=== PATIENT | male | born 1955 | race Hispanic/Latino ===

== ENCOUNTER 2017-11-03 17:48 | Observation (INO) | payer OTHER, MEDICARE ==
[~2017-11-03] VITALS: Ht 172.7 cm; Wt 106.4 kg
[2017-11-03 18:30] LABS: BASOPHILS % (AUTO) 0.2 % (0.0-5.0); EOSINOPHILS % (AUTO) 0.1 % (0.0-8.0); LYMPHOCYTES % (AUTO) 3.9 % (21.0-51.0); MEAN CORPUSCULAR HEMOGLOBIN 25.6 pg (27.0-33.0); MEAN CORPUSCULAR HGB CONC 31.8 g/dL (32.0-36.0); MEAN CORPUSCULAR VOLUME 80.4 fL (79-99); MONOCYTES % (AUTO) 5.3 % (3.0-13.0); NEUTROPHILS % (AUTO) 90.5 % (40.0-77.0); PLATELET COUNT (AUTO) 399 K/uL (130-400); RED BLOOD CELL COUNT(AUTO) 5.48 MIL/uL (4.50-6.20); WHITE BLOOD COUNT (AUTO) 19.6 K/uL (4.8-10.8)
[2017-11-03] MEDS ORDERED: SODIUM CHLORIDE 0.9% 1000ML 1,000 ML IV ONE (18:48)
[2017-11-03 18:51] LABS: ALBUMIN 2.8 g/dL (3.5-5.0); BILIRUBIN,TOTAL 0.6 mg/dL (0.2-1.0); CREATININE 1.5 mg/dL (0.5-1.5); TOTAL PROTEIN, SERUM 8.3 g/dL (6.0-8.3)
[2017-11-03 18:53] LABS: POTASSIUM 2.9 mmol/L (3.5-5.1)
[2017-11-03 19:11] LABS: APPEARANCE,URINE Clear (CLEAR); BILIRUBIN,URINE Negative (NEGATIVE); COLOR,URINE Yellow (YELLOW); GLUCOSE, URINE (UA) Negative (NEGATIVE); KETONES,URINE 15 mg/dL (NEGATIVE); LEUKOCYTE ESTERASE ,URINE Negative (NEGATIVE); NITRATE,URINE Negative (NEGATIVE); OCCULT BLOOD,URINE Negative (NEGATIVE); PH,URINE 6.5 (5.0-8.0); PROTEIN,URINE POS 1+ (NEGATIVE)
[2017-11-03 19:49] LABS: BACTERIA,URINE Rare /HPF (None Seen); RBC,URINE 0-1 /HPF (0-1); TRANSITIONAL EPI CELLS,URINE Few /LPF (None Seen); WBC,URINE 0-1 /HPF (0-1)
[2017-11-03 19:50] LABS: SQUAMOUS EPITHELIAL CELL,UR Few /LPF (0-2)
[2017-11-03] MEDS ORDERED: POTASSIUM BICARB/CIT AC 25 MEQ TABLET.EFF ONE (20:16)
[2017-11-03] MEDS ORDERED: IOPAMIDOL-370 100 ML VIAL IV ONE (21:43)
[2017-11-03] MEDS ORDERED: BISACODYL 10 MG SUPP.RECT RC ONE (22:53)
[2017-11-04] MEDS ORDERED: SODIUM CHLORIDE 0.9% 1000ML 1,000 ML IV SCH (01:48)
[2017-11-04 01:57] VITALS: BP 153/91
[2017-11-04] MEDS ORDERED: LACTULOSE 20 GM/30 ML UDCUP PO PRN (02:00)
[2017-11-04] MEDS ORDERED: DEXTROSE 50%-WATER 50 ML DISP.SYRIN IV PRN (02:00)
[2017-11-04] MEDS ORDERED: GLUCAGON 1MG KIT 1 MG ML IM PRN (02:00)
[2017-11-04] MEDS ORDERED: POTASSIUM CHLORIDE 20 MEQ ERTAB PO PRN (02:00)
[2017-11-04] MEDS ORDERED: ALBUTEROL SULFATE 0.083% 2.5 MG/3 ML INH IH PRN (02:00)
[2017-11-04] MEDS ORDERED: ACETAMINOPHEN 325 MG TAB PO PRN (02:00)
[2017-11-04] MEDS ORDERED: ONDANSETRON HCL 4 MG/2 ML VIAL IVP PRN (02:00)
[2017-11-04] MEDS ORDERED: DOXA1TAB2 PO (02:59)
[2017-11-04] MEDS ORDERED: METF10004 PO (02:59)
[2017-11-04] MEDS ORDERED: CITA20SO PO (02:59)
[2017-11-04] MEDS ORDERED: LOSA100T29 PO (02:59)
[2017-11-04] MEDS ORDERED: CLOP75TA14 PO (02:59)
[2017-11-04] MEDS ORDERED: SITA100T12 PO (02:59)
[2017-11-04] MEDS ORDERED: CLON0.1T PO (02:59)
[2017-11-04] MEDS ORDERED: KETO15CR2 TP (02:59)
[2017-11-04] MEDS ORDERED: ROSU10TA35 PO (02:59)
[2017-11-04] MEDS ORDERED: BENZ-39 PO (02:59)
[2017-11-04] MEDS ORDERED: ALBU0.63 IH (02:59)
[2017-11-04] MEDS ORDERED: INSU100V12 SQ (02:59)
[2017-11-04 03:35] VITALS: BP 148/88
[2017-11-04 04:12] LABS: HEMATOCRIT 42.9 % (42-54); MEAN CORPUSCULAR HEMOGLOBIN 25.8 pg (27.0-33.0); MEAN CORPUSCULAR HGB CONC 32.6 g/dL (32.0-36.0); MEAN CORPUSCULAR VOLUME 79.3 fL (79-99); PLATELET COUNT (AUTO) 310 K/uL (130-400); RED BLOOD CELL COUNT(AUTO) 5.41 MIL/uL (4.50-6.20); RED CELL DISTRIBUTION WIDTH 16.8 % (11.0-15.5); WHITE BLOOD COUNT (AUTO) 24.5 K/uL (4.8-10.8)
[2017-11-04] MEDS: LEVOFLOXACIN 500 MG/D5W 100 ML 100 ML IV SCH (04:18)
[2017-11-04] MEDS: INSULIN HUMULIN R 100 UNIT/ML 3ML SQ SCH ×4 (06:50→20:55)
[2017-11-04] MEDS: LIDOCAINE HCL-MPF 1% 2ML VIAL IVP PRN ×3 (07:01→21:41)
[2017-11-04] MEDS: POTASSIUM CHLORIDE 20MEQ/100ML 100 ML IV PRN ×3 (07:01→21:42)
[2017-11-04] MEDS ORDERED: DOCU100C19 PO (07:50)
[2017-11-04] MEDS ORDERED: METO-409 PO (07:50)
[2017-11-04] MEDS ORDERED: TAMS0.4C32 PO (07:50)
[2017-11-04] MEDS ORDERED: TERB250T51 PO (07:50)
[2017-11-04 08:00] VITALS: BP 160/99
[2017-11-04] MEDS ORDERED: MAGNESIUM 2GM PREMIX 50ML 50 ML IV SCH (08:15)
[2017-11-04] MEDS ORDERED: FAMOTIDINE 20MG TAB 20 MG TAB PO SCH (09:00)
[2017-11-04] MEDS: FAMOTIDINE/PF 20 MG/2 ML VIAL IV SCH ×2 (09:35→21:27)
[2017-11-04 11:00] VITALS: BP 146/89
[2017-11-04] MEDS: IPRATROPIUM 0.5 MG/2.5 ML INH IH SCH ×2 (11:19→18:22)
[2017-11-04] MEDS ORDERED: IPRATROPIUM/ALBUTEROL SULFATE 3 ML SOLUTION IH SCH (12:00)
[2017-11-04 16:00] VITALS: BP 178/97
[2017-11-04 20:00] VITALS: BP 164/82
[2017-11-04] MEDS: SODIUM CHLORIDE 0.9% 1000ML 1,000 ML IV SCH (21:27)
[2017-11-04] MEDS: HYDRALAZINE HCL 20 MG/ML VIAL IV PRN (21:42)
[2017-11-05] VITALS: BP 158/78
[2017-11-05] MEDS: IPRATROPIUM 0.5 MG/2.5 ML INH IH SCH ×4 (00:05→18:44)
[2017-11-05 04:00] VITALS: BP 148/80
[2017-11-05] MEDS: LEVOFLOXACIN 500 MG/D5W 100 ML 100 ML IV SCH (04:16)
[2017-11-05] MEDS: SODIUM CHLORIDE 0.9% 1000ML 1,000 ML IV SCH (05:00)
[2017-11-05 05:04] LABS: HEMATOCRIT 39.3 % (42-54); MEAN CORPUSCULAR HGB CONC 32.9 g/dL (32.0-36.0); PLATELET COUNT (AUTO) 339 K/uL (130-400); RED BLOOD CELL COUNT(AUTO) 4.97 MIL/uL (4.50-6.20); RED CELL DISTRIBUTION WIDTH 16.5 % (11.0-15.5); WHITE BLOOD COUNT (AUTO) 13.4 K/uL (4.8-10.8)
[2017-11-05 05:19] LABS: CREATININE 0.7 mg/dL (0.5-1.5); MAGNESIUM 1.8 mg/dL (1.80-2.40); PHOSPHORUS 2.1 mg/dL (2.5-4.9)
[2017-11-05 05:25] LABS: POTASSIUM 2.8 mmol/L (3.5-5.1)
[2017-11-05] MEDS: LIDOCAINE HCL-MPF 1% 2ML VIAL IVP PRN ×3 (05:42→15:55)
[2017-11-05] MEDS: POTASSIUM CHLORIDE 20MEQ/100ML 100 ML IV PRN ×3 (05:43→15:55)
[2017-11-05 06:06] LABS: ERYTHROCYTE SEDIMENTATION RATE 57 MM/HR (0-15)
[2017-11-05 06:08] LABS: BAND NEUTROPHILS % (MANUAL) 2 % (0-2); BASOPHILS % (MANUAL) 1 % (0-2); LYMPHOCYTES % (MANUAL) 14 % (22-44); MONOCYTES % (MANUAL) 6 % (2-9); REACTIVE LYMPHOCYTES 1 % (0-0); SEGMENTED NEUTROPHILS % 76 % (40-70)
[2017-11-05 06:09] LABS: MAN.DIFF COMMENT-IMPRESSION MANUAL DIFFERENTIAL; PLATELET MORPHOLOGY COMMENT ADEQUATE
[2017-11-05] MEDS: INSULIN HUMULIN R 100 UNIT/ML 3ML SQ SCH ×4 (06:38→21:00)
[2017-11-05 07:57] VITALS: BP 158/87
[2017-11-05] MEDS ORDERED: MAGNESIUM 2GM PREMIX 50ML 50 ML IV SCH (08:15)
[2017-11-05] MEDS: POTASSIUM CHLORIDE 20 MEQ in SODIUM CHLORIDE 0.9% 1000ML 1,000 ML IV SCH (09:47)
[2017-11-05] MEDS: FAMOTIDINE/PF 20 MG/2 ML VIAL IV SCH ×2 (09:47→22:22)
[2017-11-05] MEDS: ENOXAPARIN SODIUM 30 MG/0.3 ML SQ SCH ×2 (09:50→09:58)
[2017-11-05 11:50] VITALS: BP 144/90
[2017-11-05 16:00] VITALS: BP 172/93
[2017-11-05 20:00] VITALS: BP 146/92
[2017-11-05] MEDS: HYDRALAZINE HCL 20 MG/ML VIAL IV PRN (23:51)
[2017-11-06] VITALS: BP 166/84
[2017-11-06] MEDS: IPRATROPIUM 0.5 MG/2.5 ML INH IH SCH ×5 (00:09→23:18)
[2017-11-06 04:00] VITALS: BP 144/86
[2017-11-06] MEDS: LEVOFLOXACIN 500 MG/D5W 100 ML 100 ML IV SCH (04:12)
[2017-11-06] MEDS: POTASSIUM CHLORIDE 20 MEQ in SODIUM CHLORIDE 0.9% 1000ML 1,000 ML IV SCH (05:43)
[2017-11-06 06:35] LABS: BASOPHILS % (AUTO) 0.5 % (0.0-5.0); EOSINOPHILS % (AUTO) 1.6 % (0.0-8.0); HEMATOCRIT 37.7 % (42-54); LYMPHOCYTES % (AUTO) 15.5 % (21.0-51.0); MEAN CORPUSCULAR HEMOGLOBIN 26.1 pg (27.0-33.0); MEAN CORPUSCULAR HGB CONC 32.6 g/dL (32.0-36.0); MEAN CORPUSCULAR VOLUME 80.1 fL (79-99); NEUTROPHILS % (AUTO) 74.4 % (40.0-77.0); PLATELET COUNT (AUTO) 333 K/uL (130-400); RED BLOOD CELL COUNT(AUTO) 4.71 MIL/uL (4.50-6.20); RED CELL DISTRIBUTION WIDTH 16.9 % (11.0-15.5); WHITE BLOOD COUNT (AUTO) 11.5 K/uL (4.8-10.8)
[2017-11-06 06:45] LABS: CREATININE 0.7 mg/dL (0.5-1.5)
[2017-11-06] MEDS: INSULIN HUMULIN R 100 UNIT/ML 3ML SQ SCH ×4 (07:30→21:00)
[2017-11-06 08:00] VITALS: BP 173/88
[2017-11-06] MEDS: POTASSIUM CHLORIDE 10% ELIXIR 20 MEQ/15 ML UDCUP PO PRN ×3 (10:58→17:01)
[2017-11-06] MEDS: FAMOTIDINE/PF 20 MG/2 ML VIAL IV SCH ×2 (10:58→22:13)
[2017-11-06] MEDS: HYDRALAZINE HCL 20 MG/ML VIAL IV PRN (10:59)
[2017-11-06 11:00] VITALS: BP 151/81
[2017-11-06] MEDS: ENOXAPARIN SODIUM 30 MG/0.3 ML SQ SCH (11:01)
[2017-11-06 16:00] VITALS: BP 148/96
[2017-11-06 20:00] VITALS: BP 136/86
[2017-11-07] VITALS: BP 160/86
[2017-11-07] MEDS: HYDRALAZINE HCL 20 MG/ML VIAL IV PRN (00:03)
[2017-11-07 04:00] VITALS: BP 144/86
[2017-11-07] MEDS: LEVOFLOXACIN 500 MG/D5W 100 ML 100 ML IV SCH (04:33)
[2017-11-07] MEDS: IPRATROPIUM 0.5 MG/2.5 ML INH IH SCH ×2 (06:21→11:25)
[2017-11-07] MEDS: INSULIN HUMULIN R 100 UNIT/ML 3ML SQ SCH ×4 (06:52→20:27)
[2017-11-07 08:00] VITALS: BP 148/80
[2017-11-07] MEDS ORDERED: LINAGLIPTIN 5 MG TABLET PO SCH (08:30)
[2017-11-07 08:58] LABS: CREATININE 0.7 mg/dL (0.5-1.5); POTASSIUM 3.6 mmol/L (3.5-5.1)
[2017-11-07] MEDS ORDERED: CITALOPRAM 20 MG TABLET PO SCH (09:00)
[2017-11-07] MEDS ORDERED: KETOCONAZOLE 15 GM CREAM.GM. TP SCH (09:00)
[2017-11-07] MEDS ORDERED: DOXAZOSIN MESYLATE 2 MG TABLET PO SCH (09:00)
[2017-11-07] MEDS ORDERED: CLOPIDOGREL BISULFATE 75 MG TAB PO SCH (09:00)
[2017-11-07] MEDS ORDERED: TERBINAFINE HCL 250 MG PO SCH (09:00)
[2017-11-07 11:00] VITALS: BP 143/89
[2017-11-07] MEDS: DOCUSATE SODIUM 100 MG CAP PO SCH ×2 (11:39→20:21)
[2017-11-07] MEDS: METOPROLOL TARTRATE 50 MG TAB PO SCH ×2 (11:40→20:21)
[2017-11-07] MEDS: FAMOTIDINE/PF 20 MG/2 ML VIAL IV SCH (11:40)
[2017-11-07] MEDS: TAMSULOSIN HCL 0.4 MG CAP.ER.24H PO SCH ×2 (11:40→20:21)
[2017-11-07] MEDS ORDERED: IPRATROPIUM 0.5 MG/2.5 ML INH IH PRN (15:57)
[2017-11-07 16:00] VITALS: BP 132/77
[2017-11-07] MEDS ORDERED: BENZONATATE 100 MG CAPSULE PO PRN (16:00)
[2017-11-07] MEDS ORDERED: CLONIDINE HCL 0.1 MG TABLET PO PRN (16:00)
[2017-11-07] MEDS ORDERED: METFORMIN HCL 500 MG TABLET PO SCH (17:00)
[2017-11-07] MEDS ORDERED: LEVO500T2 PO (17:30)
[2017-11-07 19:27] VITALS: BP 153/99
[2017-11-07] MEDS ORDERED: ATORVASTATIN CALCIUM 20 MG TABLET PO SCH (21:00)
[2017-11-08] MEDS ORDERED: INSULIN GLARGINE 100 UNITS/ML 10 ML VIAL SQ SCH (07:30)
[2017-11-08] MEDS ORDERED: INSULIN GLARGINE 100 UNITS/ML 10 ML VIAL SQ ONE (08:00)
[2017-11-08] MEDS ORDERED: LEVOFLOXACIN 500 MG TABLET PO SCH (09:00)
== END 2017-11-07 20:52 ==
LOC: EDH 17:48 → 3BH 11-04 00:56
PROVIDERS: ADMIT Internal Medicine; ATTEND Internal Medicine
DX: D72.829 Elevated white blood cell count, unspecified (principal); E86.0 Dehydration; E87.6 Hypokalemia; R13.10 Dysphagia, unspecified; K59.00 Constipation, unspecified; R62.7 Adult failure to thrive; E78.5 Hyperlipidemia, unspecified; I10 Essential (primary) hypertension; E11.9 Type 2 diabetes mellitus without complications; H54.8 Legal blindness, as defined in USA; E46 Unspecified protein-calorie malnutrition; Z86.73 Personal history of transient ischemic attack (TIA), and cerebral infarction without residual deficits; Z90.49 Acquired absence of other specified parts of digestive tract; Z79.84 Long term (current) use of oral hypoglycemic drugs; Z79.899 Other long term (current) drug therapy
CPT/HCPCS: 36415 ×5; 70450; 71045; 71250; 74177; 80048 ×4; 80053; 81001; 81206; 82948 ×17; 83735 ×3; 84100; 84132 ×3; 84484; 85025 ×4; 85651 ×2; 87040 ×2; 88313; 92610 ×2; 93005; 94640 ×13; 94664; 96361 ×2; 96365; 96366 ×4; 96367; 96372 ×2; 96375; 96376 ×5; 97039; 97161; 97530 ×2; 99285; G0378 ×92; G8978; G8979; G8981; G8982; G8983; J0360 ×4; J1650 ×2; J1956 ×4; J3475 ×2; J3480 ×8; J3490 ×13; J7030 ×3; Q9967

== ENCOUNTER 2017-12-18 13:57 | Inpatient (IN) | payer OTHER, MEDICARE ==
[~2017-12-18] VITALS: Ht 170.2 cm; Wt 98.1 kg
[~2017-12-18 13:57] MED LIST: ALBU0.63 IH; BENZ-39 PO; CITA20SO PO; CLON0.1T PO; CLOP75TA14 PO; DOCU100C19 PO; DOXA1TAB2 PO; INSU100V12 SQ; KETO15CR2 TP; LEVO500T2 PO; LOSA100T29 PO; METF10004 PO; METO-409 PO; ROSU10TA27 PO; SITA100T12 PO; TAMS0.4C32 PO; TERB250T51 PO
[2017-12-18] MEDS ORDERED: IPRATROPIUM/ALBUTEROL SULFATE 3 ML SOLUTION IH ONE (14:04)
[2017-12-18] MEDS ORDERED: SODIUM CHLORIDE 0.9% 1000ML 1,000 ML IV ONE (14:07)
[2017-12-18 14:22] LABS: BASOPHILS % (AUTO) 0.3 % (0.0-5.0); EOSINOPHILS % (AUTO) 0.1 % (0.0-8.0); HEMATOCRIT 42.8 % (42-54); LYMPHOCYTES % (AUTO) 7.6 % (21.0-51.0); MEAN CORPUSCULAR HGB CONC 32.1 g/dL (32.0-36.0); MONOCYTES % (AUTO) 3.1 % (3.0-13.0); NEUTROPHILS % (AUTO) 88.9 % (40.0-77.0); PLATELET COUNT (AUTO) 398 K/uL (130-400); RED BLOOD CELL COUNT(AUTO) 5.28 MIL/uL (4.50-6.20); RED CELL DISTRIBUTION WIDTH 17.8 % (11.0-15.5); WHITE BLOOD COUNT (AUTO) 23.6 K/uL (4.8-10.8)
[2017-12-18] MEDS ORDERED: LEVOFLOXACIN 750 MG/D5W 150 ML 150 ML ONE (14:29)
[2017-12-18 14:31] LABS: APPEARANCE,URINE SLIGHTLY CLOUDY (CLEAR); BILIRUBIN,URINE Small (NEGATIVE); COLOR,URINE Dark Yellow (YELLOW); GLUCOSE, URINE (UA) Negative (NEGATIVE); KETONES,URINE Negative (NEGATIVE); LEUKOCYTE ESTERASE ,URINE Trace (NEGATIVE); NITRATE,URINE Negative (NEGATIVE); OCCULT BLOOD,URINE Negative (NEGATIVE); PROTEIN,URINE Trace (NEGATIVE)
[2017-12-18 14:34] LABS: INR 1.1 (0.85-1.15); PARTIAL THROMBOPLASTIN TIME 25.3 SEC (26.3-35.5); PROTHROMBIN TIME 11.5 SEC (9.6-11.6)
[2017-12-18 14:36] LABS: ALBUMIN 2.4 g/dL (3.5-5.0); BILIRUBIN,TOTAL 0.7 mg/dL (0.2-1.0); CREATININE 2.9 mg/dL (0.5-1.5); POTASSIUM 4.2 mmol/L (3.5-5.1); TOTAL PROTEIN, SERUM 7.4 g/dL (6.0-8.3)
[2017-12-18 14:49] LABS: AMORPHOUS SEDIMENT,UR Few /LPF (None Seen); BACTERIA,URINE Rare /HPF (None Seen); RBC,URINE 0-1 /HPF (0-1); SQUAMOUS EPITHELIAL CELL,UR Few /HPF (0-2); WBC,URINE 0-1 /HPF (0-1)
[2017-12-18] MEDS ORDERED: SODIUM CHLORIDE 0.9% 1000ML 2,000 ML IV ONE (15:07)
[2017-12-18] MEDS ORDERED: CEFTRIAXONE SODIUM 1 GM ONE (15:19)
[2017-12-18 17:22] VITALS: BP 109/69
[2017-12-18] MEDS ORDERED: GLUCAGON 1MG KIT 1 MG ML IM PRN (18:00)
[2017-12-18] MEDS ORDERED: DEXTROSE 50%-WATER 50 ML DISP.SYRIN IV PRN (18:00)
[2017-12-18] MEDS ORDERED: POTASSIUM CHLORIDE 20 MEQ ERTAB PO PRN (18:00)
[2017-12-18] MEDS: INSULIN R NPO SS1 SQ SCH (18:00)
[2017-12-18] MEDS ORDERED: POTASSIUM CHLORIDE 10% ELIXIR 20 MEQ/15 ML UDCUP PO PRN (18:00)
[2017-12-18] MEDS ORDERED: ACETAMINOPHEN 650 MG SUPPOSITORY RC PRN (18:00)
[2017-12-18] MEDS ORDERED: ONDANSETRON HCL 4 MG/2 ML VIAL IVP PRN (18:00)
[2017-12-18 19:12] VITALS: BP 120/71
[2017-12-18] MEDS: IPRATROPIUM/ALBUTEROL SULFATE 3 ML SOLUTION IH SCH ×2 (19:25→23:36)
[2017-12-18] MEDS ORDERED: DEXTROSE 5%-WATER 1,000 ML IV ONE (22:23)
[2017-12-18 23:37] VITALS: BP 101/53
[2017-12-18] MEDS: DEXTROSE 5%-WATER 1,000 ML IV SCH (23:45)
[2017-12-19 03:14] VITALS: BP 105/48
[2017-12-19 04:12] LABS: ABG BASE EXCESS -0.4 mmol/L (-2.0-3.0); ABG HCO3 23.2 mmol/L (21.0-28.0); ABG OXYGEN SATURATION 96.1 % (95.0-99.0); ABG PCO2 35 mmHg (35-48)
[2017-12-19 04:17] LABS: HEMATOCRIT 36.4 % (42-54); MEAN CORPUSCULAR HEMOGLOBIN 25.7 pg (27.0-33.0); MEAN CORPUSCULAR HGB CONC 31.8 g/dL (32.0-36.0); PLATELET COUNT (AUTO) 264 K/uL (130-400); RED BLOOD CELL COUNT(AUTO) 4.49 MIL/uL (4.50-6.20); RED CELL DISTRIBUTION WIDTH 17.9 % (11.0-15.5); WHITE BLOOD COUNT (AUTO) 28.1 K/uL (4.8-10.8)
[2017-12-19 04:36] LABS: HEMOGLOBIN A1C 7.1 % (4.0-6.0)
[2017-12-19 04:40] LABS: ALBUMIN 1.7 g/dL (3.5-5.0); BILIRUBIN,TOTAL 0.4 mg/dL (0.2-1.0); CREATININE 2.2 mg/dL (0.5-1.5); POTASSIUM 3.3 mmol/L (3.5-5.1); TOTAL PROTEIN, SERUM 6.5 g/dL (6.0-8.3)
[2017-12-19] MEDS: POTASSIUM CHLORIDE 20MEQ/100ML 100 ML IV PRN (05:38)
[2017-12-19] MEDS: INSULIN R NPO SS1 SQ SCH ×5 (05:44→23:56)
[2017-12-19] MEDS: IPRATROPIUM/ALBUTEROL SULFATE 3 ML SOLUTION IH SCH ×4 (06:49→23:46)
[2017-12-19 07:00] VITALS: BP 136/79
[2017-12-19] MEDS ORDERED: MEROPENEM 500MG+NS 50ML 50 ML IV SCH (08:15)
[2017-12-19] MEDS ORDERED: MEROPENEM 500 MG VIAL IVP SCH (08:45)
[2017-12-19] MEDS ORDERED: CEFTRIAXONE SODIUM 1 GM IVP SCH (09:00)
[2017-12-19] MEDS ORDERED: PANTOPRAZOLE 40 MG/VIAL IV SCH (09:00)
[2017-12-19 11:00] VITALS: BP 114/69
[2017-12-19] MEDS: PANTOPRAZOLE 40 MG/VIAL IV SCH (13:19)
[2017-12-19] MEDS: LEVOFLOXACIN 500 MG/D5W 100 ML 100 ML IV SCH (13:19)
[2017-12-19] MEDS: DEXTROSE 5%-WATER 1,000 ML IV SCH ×2 (13:30→23:24)
[2017-12-19 16:00] VITALS: BP 139/85
[2017-12-19 19:21] VITALS: BP 133/69
[2017-12-19] MEDS: MEROPENEM 500 MG VIAL IVP SCH (23:23)
[2017-12-19] MEDS: ACETYLCYSTEINE 20% 200MG/ML 4ML VIAL IH SCH (23:46)
[2017-12-19 23:47] VITALS: BP 133/81
[2017-12-20 04:08] LABS: HEMATOCRIT 35.6 % (42-54); MEAN CORPUSCULAR HEMOGLOBIN 25.8 pg (27.0-33.0); MEAN CORPUSCULAR HGB CONC 31.7 g/dL (32.0-36.0); MEAN CORPUSCULAR VOLUME 81.2 fL (79-99); PLATELET COUNT (AUTO) 207 K/uL (130-400); RED BLOOD CELL COUNT(AUTO) 4.38 MIL/uL (4.50-6.20); RED CELL DISTRIBUTION WIDTH 18.1 % (11.0-15.5); WHITE BLOOD COUNT (AUTO) 23.2 K/uL (4.8-10.8)
[2017-12-20 04:16] VITALS: BP 124/67
[2017-12-20 04:29] LABS: ALBUMIN 1.7 g/dL (3.5-5.0); BILIRUBIN,TOTAL 0.3 mg/dL (0.2-1.0); CREATININE 1.4 mg/dL (0.5-1.5); MAGNESIUM 1.9 mg/dL (1.80-2.40); TOTAL PROTEIN, SERUM 5.8 g/dL (6.0-8.3)
[2017-12-20 04:34] LABS: POTASSIUM 2.9 mmol/L (3.5-5.1)
[2017-12-20] MEDS: POTASSIUM CHLORIDE 20MEQ/100ML 100 ML IV PRN ×2 (04:47→04:48)
[2017-12-20] MEDS: ACETYLCYSTEINE 20% 200MG/ML 4ML VIAL IH SCH ×6 (05:39→23:30)
[2017-12-20] MEDS: IPRATROPIUM/ALBUTEROL SULFATE 3 ML SOLUTION IH SCH ×4 (05:39→23:29)
[2017-12-20] MEDS: INSULIN R NPO SS1 SQ SCH ×4 (05:55→23:39)
[2017-12-20 07:00] VITALS: BP 136/70
[2017-12-20] MEDS ORDERED: VANCOMYCIN PROTOCOL PER PHARMACY IV PRN (08:00)
[2017-12-20] MEDS ORDERED: VANCOMYCIN 1GM+NS 250ML 250 ML IV SCH (08:00)
[2017-12-20] MEDS ORDERED: LABETALOL 20 MG/4 ML DISP.SYRIN IV SCH (08:15)
[2017-12-20] MEDS ORDERED: MAGNESIUM 2GM PREMIX 50ML 50 ML IV SCH (08:15)
[2017-12-20] MEDS ORDERED: COMPOUND IV REFRIGERATED 1 EACH IVSOLN MISC PRN (08:15)
[2017-12-20] MEDS: ENOXAPARIN SODIUM 30 MG/0.3 ML SQ SCH (08:35)
[2017-12-20] MEDS: PANTOPRAZOLE 40 MG/VIAL IV SCH (09:28)
[2017-12-20] MEDS: POTASSIUM CHLORIDE 20 MEQ in DEXTROSE 5%-WATER 1,000 ML IV SCH ×3 (09:28→23:39)
[2017-12-20] MEDS: LABETALOL HCL 5 MG/ML 20ML VIAL IV SCH ×3 (09:33→20:46)
[2017-12-20 11:00] VITALS: BP 130/75
[2017-12-20] MEDS: MEROPENEM 500 MG VIAL IVP SCH ×2 (12:36→23:39)
[2017-12-20] MEDS ORDERED: ONDANSETRON HCL MDV 20ML 2 MG/ML VIAL IVP PRN (12:57)
[2017-12-20] MEDS: LEVOFLOXACIN 500 MG/D5W 100 ML 100 ML IV SCH (15:17)
[2017-12-20 16:00] VITALS: BP 158/90
[2017-12-20 19:23] VITALS: BP 133/67
[2017-12-20] MEDS: VANCOMYCIN 750MG + NS 250 ML IV SCH ×2 (20:46)
[2017-12-20 23:04] VITALS: BP 133/89
[2017-12-20] MEDS ORDERED: POTASSIUM CHLORIDE 20 MEQ in DEXTROSE 5%-WATER 1,000 ML IV SCH (23:45)
[2017-12-21] MEDS: LABETALOL HCL 5 MG/ML 20ML VIAL IV SCH ×4 (01:49→20:56)
[2017-12-21 03:36] VITALS: BP 136/83
[2017-12-21 04:01] LABS: HEMATOCRIT 35.1 % (42-54); MEAN CORPUSCULAR HEMOGLOBIN 25.8 pg (27.0-33.0); MEAN CORPUSCULAR HGB CONC 31.8 g/dL (32.0-36.0); MEAN CORPUSCULAR VOLUME 81.3 fL (79-99); PLATELET COUNT (AUTO) 243 K/uL (130-400); RED BLOOD CELL COUNT(AUTO) 4.32 MIL/uL (4.50-6.20); RED CELL DISTRIBUTION WIDTH 17.9 % (11.0-15.5); WHITE BLOOD COUNT (AUTO) 20.6 K/uL (4.8-10.8)
[2017-12-21 04:12] LABS: CREATININE 1.1 mg/dL (0.5-1.5); POTASSIUM 3.3 mmol/L (3.5-5.1)
[2017-12-21 04:16] LABS: BAND NEUTROPHILS % (MANUAL) 2 % (0-2); LYMPHOCYTES % (MANUAL) 6 % (22-44); MONOCYTES % (MANUAL) 4 % (2-9); SEGMENTED NEUTROPHILS % 88 % (40-70)
[2017-12-21 04:17] LABS: MAN.DIFF COMMENT-IMPRESSION MANUAL DIFFERENTIAL
[2017-12-21] MEDS: INSULIN R NPO SS1 SQ SCH ×4 (05:45→23:49)
[2017-12-21] MEDS: IPRATROPIUM/ALBUTEROL SULFATE 3 ML SOLUTION IH SCH ×4 (05:54→23:32)
[2017-12-21] MEDS: ACETYLCYSTEINE 20% 200MG/ML 4ML VIAL IH SCH (05:55)
[2017-12-21 08:01] VITALS: BP 150/91
[2017-12-21] MEDS: PANTOPRAZOLE 40 MG/VIAL IV SCH (08:04)
[2017-12-21] MEDS: ENOXAPARIN SODIUM 30 MG/0.3 ML SQ SCH (08:05)
[2017-12-21] MEDS: VANCOMYCIN 750MG + NS 250 ML IV SCH ×4 (08:05→20:55)
[2017-12-21 11:07] VITALS: BP 156/88
[2017-12-21] MEDS: MEROPENEM 500 MG VIAL IVP SCH ×2 (11:54→23:47)
[2017-12-21] MEDS: LEVOFLOXACIN 500 MG/D5W 100 ML 100 ML IV SCH (13:04)
[2017-12-21] MEDS: POTASSIUM CHLORIDE 20 MEQ in DEXTROSE 5%-WATER 1,000 ML IV SCH (13:08)
[2017-12-21 16:35] VITALS: BP 135/67
[2017-12-21 19:41] VITALS: BP 137/84
[2017-12-21 23:47] VITALS: BP 138/91
[2017-12-22] MEDS: POTASSIUM CHLORIDE 20 MEQ in DEXTROSE 5%-WATER 1,000 ML IV SCH ×2 (00:53→12:44)
[2017-12-22] MEDS: LABETALOL HCL 5 MG/ML 20ML VIAL IV SCH ×4 (03:23→21:00)
[2017-12-22 04:12] VITALS: BP 150/86
[2017-12-22 04:46] LABS: MEAN CORPUSCULAR HEMOGLOBIN 26.5 pg (27.0-33.0); MEAN CORPUSCULAR HGB CONC 32.7 g/dL (32.0-36.0); MEAN CORPUSCULAR VOLUME 80.9 fL (79-99); NUCLEATED RED BLOOD CELLS 0.1 % (0.0-0.19); PLATELET COUNT (AUTO) 229 K/uL (130-400); RED BLOOD CELL COUNT(AUTO) 4.45 MIL/uL (4.50-6.20); RED CELL DISTRIBUTION WIDTH 17.5 % (11.0-15.5)
[2017-12-22 04:59] LABS: CREATININE 0.9 mg/dL (0.5-1.5); POTASSIUM 3.3 mmol/L (3.5-5.1)
[2017-12-22] MEDS: LIDOCAINE HCL-MPF 1% 2ML VIAL IJ PRN (06:05)
[2017-12-22] MEDS: POTASSIUM CHLORIDE 20MEQ/100ML 100 ML IV PRN ×2 (06:05→10:11)
[2017-12-22] MEDS: IPRATROPIUM/ALBUTEROL SULFATE 3 ML SOLUTION IH SCH ×3 (06:10→19:10)
[2017-12-22] MEDS: INSULIN R NPO SS1 SQ SCH ×3 (06:21→18:00)
[2017-12-22 07:48] VITALS: BP 116/74
[2017-12-22] MEDS: PANTOPRAZOLE 40 MG/VIAL IV SCH (10:07)
[2017-12-22] MEDS: ENOXAPARIN SODIUM 30 MG/0.3 ML SQ SCH (10:07)
[2017-12-22] MEDS: VANCOMYCIN 750MG + NS 250 ML IV SCH ×4 (10:12→21:01)
[2017-12-22] MEDS: ACETYLCYSTEINE 20% 200MG/ML 4ML VIAL IH SCH ×2 (11:06→19:11)
[2017-12-22 11:22] VITALS: BP 152/87
[2017-12-22] MEDS: MEROPENEM 500 MG VIAL IVP SCH (12:31)
[2017-12-22] MEDS: LEVOFLOXACIN 500 MG/D5W 100 ML 100 ML IV SCH (16:00)
[2017-12-22 16:11] VITALS: BP 153/93
[2017-12-22 19:58] VITALS: BP 138/86
[2017-12-22 23:39] VITALS: BP 146/90
[2017-12-23] VITALS (23 sets, daily range): BP systolic 117–170; BP diastolic 63–100
[2017-12-23] MEDS ORDERED: ACETYLCYSTEINE 20% 200MG/ML 4ML VIAL ONE (00:16)
[2017-12-23] MEDS: IPRATROPIUM/ALBUTEROL SULFATE 3 ML SOLUTION IH SCH ×5 (00:18→23:28)
[2017-12-23] MEDS: ACETYLCYSTEINE 20% 200MG/ML 4ML VIAL IH SCH (00:19)
[2017-12-23] MEDS: MEROPENEM 500 MG VIAL IVP SCH ×2 (00:49→10:41)
[2017-12-23] MEDS: LABETALOL HCL 5 MG/ML 20ML VIAL IV SCH ×4 (02:34→21:41)
[2017-12-23 04:39] LABS: HEMATOCRIT 38.4 % (42-54); MEAN CORPUSCULAR HEMOGLOBIN 25.8 pg (27.0-33.0); MEAN CORPUSCULAR HGB CONC 31.9 g/dL (32.0-36.0); MEAN CORPUSCULAR VOLUME 81.1 fL (79-99); NUCLEATED RED BLOOD CELLS 0.5 % (0.0-0.19); PLATELET COUNT (AUTO) 205 K/uL (130-400); RED BLOOD CELL COUNT(AUTO) 4.73 MIL/uL (4.50-6.20); RED CELL DISTRIBUTION WIDTH 17.7 % (11.0-15.5); WHITE BLOOD COUNT (AUTO) 16.7 K/uL (4.8-10.8)
[2017-12-23 04:43] LABS: EOSINOPHILS % (MANUAL) 1 % (1-6); LYMPHOCYTES % (MANUAL) 9 % (22-44); MAN.DIFF COMMENT-IMPRESSION MANUAL DIFFERENTIAL; MONOCYTES % (MANUAL) 9 % (2-9); PLATELET MORPHOLOGY COMMENT ADEQUATE; SEGMENTED NEUTROPHILS % 81 % (40-70)
[2017-12-23 04:46] LABS: CREATININE 0.9 mg/dL (0.5-1.5)
[2017-12-23] MEDS: INSULIN R NPO SS1 SQ SCH ×4 (05:54→18:00)
[2017-12-23] MEDS: ENOXAPARIN SODIUM 30 MG/0.3 ML SQ SCH (09:00)
[2017-12-23] MEDS: POTASSIUM CHLORIDE 20 MEQ in DEXTROSE 5%-WATER 1,000 ML IV SCH ×2 (09:45→14:58)
[2017-12-23] MEDS: PANTOPRAZOLE 40 MG/VIAL IV SCH (10:42)
[2017-12-23] MEDS: VANCOMYCIN 750MG + NS 250 ML IV SCH ×4 (10:43→21:41)
[2017-12-23] MEDS ORDERED: PROPOFOL 10 MG/ML 20ML VIAL IV ONE (12:51)
[2017-12-23] MEDS: LEVOFLOXACIN 500 MG/D5W 100 ML 100 ML IV SCH (14:58)
[2017-12-23] MEDS ORDERED: MORPHINE SULFATE 4 MG/1ML SYG IVP PRN (19:15)
[2017-12-24] MEDS: MEROPENEM 500 MG VIAL IVP SCH ×3 (01:05→23:12)
[2017-12-24] MEDS: POTASSIUM CHLORIDE 20 MEQ in DEXTROSE 5%-WATER 1,000 ML IV SCH ×2 (01:06→09:37)
[2017-12-24] MEDS: LABETALOL HCL 5 MG/ML 20ML VIAL IV SCH ×4 (03:12→20:12)
[2017-12-24 03:46] VITALS: BP 138/78
[2017-12-24 04:56] LABS: HEMATOCRIT 34.7 % (42-54); MEAN CORPUSCULAR HEMOGLOBIN 26.7 pg (27.0-33.0); MEAN CORPUSCULAR HGB CONC 33.3 g/dL (32.0-36.0); MEAN CORPUSCULAR VOLUME 80.3 fL (79-99); PLATELET COUNT (AUTO) 187 K/uL (130-400); RED BLOOD CELL COUNT(AUTO) 4.32 MIL/uL (4.50-6.20); RED CELL DISTRIBUTION WIDTH 17.4 % (11.0-15.5); WHITE BLOOD COUNT (AUTO) 15.1 K/uL (4.8-10.8)
[2017-12-24 05:07] LABS: CREATININE 0.8 mg/dL (0.5-1.5); POTASSIUM 3.5 mmol/L (3.5-5.1)
[2017-12-24] MEDS: INSULIN R NPO SS1 SQ SCH ×4 (05:42→18:00)
[2017-12-24] MEDS: LIDOCAINE HCL-MPF 1% 2ML VIAL IJ PRN (05:46)
[2017-12-24] MEDS: POTASSIUM CHLORIDE 20MEQ/100ML 100 ML IV PRN (05:46)
[2017-12-24] MEDS: IPRATROPIUM/ALBUTEROL SULFATE 3 ML SOLUTION IH SCH ×3 (06:00→18:05)
[2017-12-24 07:00] VITALS: BP 144/84
[2017-12-24] MEDS: FAMOTIDINE/PF 20 MG/2 ML VIAL IV SCH ×2 (09:31→20:12)
[2017-12-24] MEDS: VANCOMYCIN 750MG + NS 250 ML IV SCH ×4 (09:32→20:14)
[2017-12-24] MEDS: ENOXAPARIN SODIUM 30 MG/0.3 ML SQ SCH (09:33)
[2017-12-24 11:00] VITALS: BP 142/79
[2017-12-24] MEDS: LEVOFLOXACIN 500 MG/D5W 100 ML 100 ML IV SCH (13:29)
[2017-12-24 16:00] VITALS: BP 137/79
[2017-12-24] MEDS ORDERED: D5W-1/2 NS/20MEQ KCL 1,000 ML IV SCH (16:00)
[2017-12-24] MEDS: METOCLOPRAMIDE 10MG/10ML UDCUP PEG SCH ×2 (18:03→23:12)
[2017-12-24 19:49] VITALS: BP 116/69
[2017-12-24 23:32] VITALS: BP 130/75
[2017-12-25] MEDS: IPRATROPIUM/ALBUTEROL SULFATE 3 ML SOLUTION IH SCH ×5 (00:28→23:45)
[2017-12-25] MEDS: LABETALOL HCL 5 MG/ML 20ML VIAL IV SCH ×4 (03:29→21:15)
[2017-12-25 03:48] VITALS: BP 124/72
[2017-12-25 04:14] LABS: HEMATOCRIT 33.4 % (42-54); MEAN CORPUSCULAR HEMOGLOBIN 25.9 pg (27.0-33.0); MEAN CORPUSCULAR HGB CONC 32.6 g/dL (32.0-36.0); MEAN CORPUSCULAR VOLUME 79.6 fL (79-99); PLATELET COUNT (AUTO) 172 K/uL (130-400); RED BLOOD CELL COUNT(AUTO) 4.19 MIL/uL (4.50-6.20); RED CELL DISTRIBUTION WIDTH 17.4 % (11.0-15.5); WHITE BLOOD COUNT (AUTO) 12.5 K/uL (4.8-10.8)
[2017-12-25 04:27] LABS: CREATININE 0.8 mg/dL (0.5-1.5); POTASSIUM 3.5 mmol/L (3.5-5.1)
[2017-12-25] MEDS: METOCLOPRAMIDE 10MG/10ML UDCUP PEG SCH ×4 (05:44→23:52)
[2017-12-25] MEDS: INSULIN R NPO SS1 SQ SCH ×5 (05:46→23:58)
[2017-12-25 07:00] VITALS: BP 127/67
[2017-12-25] MEDS: FAMOTIDINE/PF 20 MG/2 ML VIAL IV SCH ×2 (09:01→21:14)
[2017-12-25] MEDS: VANCOMYCIN 750MG + NS 250 ML IV SCH ×4 (09:02→21:16)
[2017-12-25] MEDS: ENOXAPARIN SODIUM 30 MG/0.3 ML SQ SCH (09:03)
[2017-12-25 11:00] VITALS: BP 132/87
[2017-12-25] MEDS: MEROPENEM 500 MG VIAL IVP SCH ×2 (11:32→23:52)
[2017-12-25] MEDS: LEVOFLOXACIN 500 MG/D5W 100 ML 100 ML IV SCH (12:55)
[2017-12-25 16:00] VITALS: BP 136/74
[2017-12-25 20:09] VITALS: BP 139/77
[2017-12-25 23:31] VITALS: BP 119/67
[2017-12-26] VITALS (7 sets, daily range): BP systolic 111–141; BP diastolic 64–80
[2017-12-26] MEDS: LABETALOL HCL 5 MG/ML 20ML VIAL IV SCH ×4 (02:12→20:49)
[2017-12-26] MEDS: INSULIN R NPO SS1 SQ SCH ×3 (05:48→18:00)
[2017-12-26] MEDS: METOCLOPRAMIDE 10MG/10ML UDCUP PEG SCH ×3 (05:48→17:55)
[2017-12-26] MEDS: IPRATROPIUM/ALBUTEROL SULFATE 3 ML SOLUTION IH SCH ×4 (07:09→23:18)
[2017-12-26] MEDS: ENOXAPARIN SODIUM 30 MG/0.3 ML SQ SCH (09:43)
[2017-12-26] MEDS: FAMOTIDINE/PF 20 MG/2 ML VIAL IV SCH ×2 (09:43→20:38)
[2017-12-26] MEDS: VANCOMYCIN 750MG + NS 250 ML IV SCH ×2 (09:44)
[2017-12-26] MEDS: MEROPENEM 500 MG VIAL IVP SCH (11:46)
[2017-12-26] MEDS: LEVOFLOXACIN 500 MG/D5W 100 ML 100 ML IV SCH (13:19)
[2017-12-26] MEDS ORDERED: PHARMACY COMMUNICATION MISC SCH (17:00)
[2017-12-26] MEDS: CHLORHEXIDINE GLUCONATE 473 ML MOUTHWASH MM SCH (20:41)
[2017-12-26] MEDS: VANCOMYCIN 500MG+NS 100ML 100 ML IV SCH (22:27)
[2017-12-27] MEDS: METOCLOPRAMIDE 10MG/10ML UDCUP PEG SCH ×3 (00:19→12:07)
[2017-12-27] MEDS: MEROPENEM 500 MG VIAL IVP SCH ×2 (00:19→12:07)
[2017-12-27] MEDS: LABETALOL HCL 5 MG/ML 20ML VIAL IV SCH ×3 (02:44→14:34)
[2017-12-27 04:00] VITALS: BP 134/78
[2017-12-27 04:21] LABS: HEMATOCRIT 34.9 % (42-54); MEAN CORPUSCULAR HEMOGLOBIN 25.7 pg (27.0-33.0); MEAN CORPUSCULAR VOLUME 80.4 fL (79-99); PLATELET COUNT (AUTO) 199 K/uL (130-400); RED BLOOD CELL COUNT(AUTO) 4.35 MIL/uL (4.50-6.20); RED CELL DISTRIBUTION WIDTH 17.7 % (11.0-15.5); WHITE BLOOD COUNT (AUTO) 12.7 K/uL (4.8-10.8)
[2017-12-27 04:29] LABS: CREATININE 0.7 mg/dL (0.5-1.5); POTASSIUM 3.4 mmol/L (3.5-5.1)
[2017-12-27] MEDS: INSULIN R NPO SS1 SQ SCH ×4 (06:00→18:00)
[2017-12-27] MEDS: IPRATROPIUM/ALBUTEROL SULFATE 3 ML SOLUTION IH SCH ×3 (06:00→19:10)
[2017-12-27 07:00] VITALS: BP 115/76
[2017-12-27] MEDS: FAMOTIDINE/PF 20 MG/2 ML VIAL IV SCH (08:32)
[2017-12-27] MEDS: CHLORHEXIDINE GLUCONATE 473 ML MOUTHWASH MM SCH (08:33)
[2017-12-27] MEDS: VANCOMYCIN 500MG+NS 100ML 100 ML IV SCH (08:33)
[2017-12-27 11:47] VITALS: BP 108/66
[2017-12-27 13:59] LABS: INR 1.02 (0.85-1.15); PROTHROMBIN TIME 10.7 SEC (9.6-11.6)
[2017-12-27] MEDS: LEVOFLOXACIN 500 MG/D5W 100 ML 100 ML IV SCH (14:34)
[2017-12-27] MEDS: ENOXAPARIN SODIUM 30 MG/0.3 ML SQ SCH (16:20)
[2017-12-27 16:44] VITALS: BP 138/71
[2017-12-27 19:57] VITALS: BP 143/78
== END 2017-12-27 20:18 | DRG 871 ==
LOC: EDH 13:57 → EDHIP 15:10 → 2AH 17:27
PROVIDERS: ADMIT Internal Medicine; ATTEND Internal Medicine
PROC: 0DJ08ZZ Inspection of Upper Intestinal Tract, Via Natural or Artificial Opening Endoscopic (ICD-10-PCS; principal; 2017-12-23)
PROC: 02HV33Z Insertion of Infusion Device into Superior Vena Cava, Percutaneous Approach (ICD-10-PCS; 2017-12-27)
DX: A41.9 Sepsis, unspecified organism (principal); J96.01 Acute respiratory failure with hypoxia; R65.21 Severe sepsis with septic shock; N17.9 Acute kidney failure, unspecified; R53.2 Functional quadriplegia; R13.12 Dysphagia, oropharyngeal phase; J18.9 Pneumonia, unspecified organism; E87.0 Hyperosmolality and hypernatremia; E86.0 Dehydration; F03.90 Unspecified dementia, unspecified severity, without behavioral disturbance, psychotic disturbance, mood disturbance, and anxiety; B95.8 Unspecified staphylococcus as the cause of diseases classified elsewhere; B96.89 Other specified bacterial agents as the cause of diseases classified elsewhere; E11.9 Type 2 diabetes mellitus without complications; E78.5 Hyperlipidemia, unspecified; E87.6 Hypokalemia; G80.8 Other cerebral palsy; H54.8 Legal blindness, as defined in USA; I10 Essential (primary) hypertension; I69.320 Aphasia following cerebral infarction; Z74.01 Bed confinement status; Z93.1 Gastrostomy status; Z88.0 Allergy status to penicillin; Z83.3 Family history of diabetes mellitus
CPT/HCPCS: 31720; 36415; 36600; 71045; 71250; 80048; 80053; 80202; 81001; 82803; 82948; 83036; 83605; 83735; 84100; 84132; 84295; 84484; 85025; 85027; 85610; 85730; 87040; 87088; 87186; 87804; 92610; 93005; 93306; 94640; 94664; 94667; 94668; 97039; 99291; A4218; C1894; C9113; J0696; J1650; J1815; J1956; J2185; J2704; J3370; J3480; J3490; J7030; J7070; J7608

== ENCOUNTER 2018-12-11 17:53 | Emergency (ER) | payer OTHER, MEDICARE ==
[~2018-12-11 17:53] MED LIST changes: +DOCU-282 PO; -DOCU100C19 PO; -LOSA100T29 PO; +LOSA100T58 PO; +METF-446 PO; -METF10004 PO
[2018-12-11] MEDS ORDERED: DIATR MEGLU/DIATRIZOATE SODIUM 30 ML BOTTLE ONE (18:27)
== END 2018-12-12 00:50 | disposition home or self-care (01) ==
LOC: EDH 17:53
DX: K94.23 Gastrostomy malfunction (principal); E11.9 Type 2 diabetes mellitus without complications; E78.5 Hyperlipidemia, unspecified; I10 Essential (primary) hypertension; H54.7 Unspecified visual loss; Z86.73 Personal history of transient ischemic attack (TIA), and cerebral infarction without residual deficits; Z79.4 Long term (current) use of insulin; Z88.0 Allergy status to penicillin
CPT/HCPCS: 43762; 74018; 99284; Q9963

== ENCOUNTER 2020-03-04 19:01 | Observation (INO) | payer OTHER, MEDICARE ==
[~2020-03-04] VITALS: Ht 170.2 cm; Wt 80.9 kg
[2020-03-04] VITALS (7 sets, daily range): BP systolic 117–134; BP diastolic 70–80
[~2020-03-04 19:01] MED LIST changes: -CITA20SO PO; +CITA20SO2 PO; -ROSU10TA27 PO; +ROSU10TA28 PO
[2020-03-04] MEDS ORDERED: ONDANSETRON HCL 4 MG/2 ML VIAL IV PRN (23:30)
[2020-03-04] MEDS ORDERED: DEXTROSE 50%-WATER 50 ML DISP.SYRIN IV PRN (23:45)
[2020-03-04] MEDS ORDERED: GLUCAGON 1MG KIT 1 MG ML IM PRN (23:45)
[2020-03-05] VITALS (36 sets, daily range): BP systolic 115–149; BP diastolic 53–84
[2020-03-05] MEDS ORDERED: ACETAMINOPHEN ELIXIR 650 MG/20.3 ML UDCUP PEG PRN
[2020-03-05] MEDS ORDERED: ACETAMINOPHEN 650 MG SUPPOSITORY RC PRN
[2020-03-05] MEDS ORDERED: GUAIFENESIN SUGAR-FREE 100 MG/5 ML UDCUP PO PRN
[2020-03-05 04:03] LABS: BASOPHILS % (AUTO) 0.5 % (0.0-5.0); EOSINOPHILS % (AUTO) 4.5 % (0.0-8.0); LYMPHOCYTES % (AUTO) 14.1 % (21.0-51.0); MEAN CORPUSCULAR HEMOGLOBIN 26.8 pg (27.0-33.0); MEAN CORPUSCULAR HGB CONC 30.6 g/dL (32.0-36.0); MEAN CORPUSCULAR VOLUME 87.4 fL (79-99); MONOCYTES % (AUTO) 5.6 % (3.0-13.0); NEUTROPHILS % (AUTO) 73.7 % (40.0-77.0); PLATELET COUNT (AUTO) 373 K/uL (130-400); RED BLOOD CELL COUNT(AUTO) 3.66 MIL/uL (4.50-6.20); RED CELL DISTRIBUTION WIDTH 17.6 % (11.0-15.5); WHITE BLOOD COUNT (AUTO) 13.3 K/uL (4.8-10.8)
[2020-03-05 04:16] LABS: INR 0.95 (0.85-1.15); PARTIAL THROMBOPLASTIN TIME 28.7 SEC (26.3-35.5); PROTHROMBIN TIME 10.3 SEC (9.6-11.6)
[2020-03-05 04:20] LABS: ALBUMIN 2.3 g/dL (3.5-5.0); BILIRUBIN,TOTAL 0.2 mg/dL (0.2-1.0); CREATININE 0.6 mg/dL (0.5-1.5); POTASSIUM 4.1 mmol/L (3.5-5.1); TOTAL PROTEIN, SERUM 6.6 g/dL (6.0-8.3)
[2020-03-05] MEDS: INSULIN HUMULIN R 100 UNIT/ML 3ML SQ SCH ×3 (05:38→18:00)
[2020-03-05] MEDS: ALBUTEROL SULFATE 0.083% 2.5 MG/3 ML INH IH SCH ×4 (06:45→22:25)
[2020-03-05] MEDS: METOPROLOL TARTRATE 50 MG TAB PO SCH ×2 (08:06→17:56)
[2020-03-05] MEDS: FAMOTIDINE/PF 20 MG/2 ML VIAL IV SCH ×2 (08:18→20:58)
--- NOTE | 2020-03-05 10:39 | NUR ---
CARISSA NOTIFICATION - TUBE FEEDING RECOMMEND CONTINUOUS TUBE FEEDING JEVITY 1.5 INITIATED AT 20MLS PER HOUR FOR FIRST 5 HOURS INCREASE RATE TOLERATED BY 5ML EVERY 5 HOURS TO GOAL GOAL RATE OF 50MLS PER HOUR TO PROVIDE 1800KCAL, 77GM PROTEIN, 912ML FREE H2O RECOMMENDED FLUSHES: 180ML EVERY 6 HOURS TUBE FEEDING RECOMMENDATIONS FAXED TO 2ND FLOOR POD C (EXT 1267). RN NOTIFIED. BOLUS FEEDINGS PROVIDED FOR DISCHARGE/ NEEDED. NUTRITION NOTE: Pt admitted with Sepsis, SOB, Hx of CVA, Dysphagia, Aphasia, HTN. Pt with Hx of compromised swallow function. Pt with Gastrostomy tube. Tube feeding recommendations provided. Addendum: 03/05/20 at [address] Amended: Links added.
--- NOTE | 2020-03-05 14:19 | NUR ---
INPT HOSPICE EVAL MANOJ contacted by , Dr Ferreira ordering inpt hospice eval. Family has decided against trach and are considering hospice. Dr Ferreira feels pt may not survive 72hrs. MANOJ met with pt's Rylee and daughter Roma. Family is in agreement with recommendation for inpt hospice and chose [facility] for services. Family made aware of process and gave consent for referral to be made. SW spoke to Noemí at [facility] and made referral. Pt information faxed to office for review. [facility] to contact family to make arrangements to meet outside of ICU unit. Waiting for acceptance
--- NOTE | 2020-03-05 14:28 | NUR ---
RD UPDATE - CRITICAL CARE TUBE FEEDING CRITICAL CARE TUBE FEEDING RECOMMENDATIONS VITAL HIGH PROTEIN INITIATED AT 20MLS/HR FOR FIRST 5 HOURS INCREASE RATE TOLERATED BY 5ML EVERY 5 HOURS TO GOAL GOAL RATE 40MLS/HR TO PROVIDE 84GM PROTEIN PER DAY. RECOMMENDATIONS FAXED TO 7850 (2ND FLOOR POD C). UNIT NOTIFIED. PLEASE NOTIFY ADDITIONAL CONCERNS ARISE. THANK YOU.
--- NOTE | 2020-03-05 14:34 | NUR ---
DC PLAN SPOKE TO DR. SPARKS SAID PATIENT HAS LESS THAN 72 HOURS TO LIVE AND WOULD BE A CANDIDATE FOR GIP. SPOKE TO FAMILY DAUGHTER PATRICIA THEY ARE OPEN TO HOSPICE. CALLED [facility] TO SEE IF THEY HAVE VISITING HOURS FOR HOSPICE. SAID NO NO VISITORS. SPOKE TO TIM WORKING WITH FAMILY REGARDING HOSPICE. PENDING FOR ORDER TO EVAL FOR GIP. Addendum: 03/05/20 at 1438 by MARK PAEZ RN CM Amended: Links added.
[2020-03-05] MEDS ORDERED: ATORVASTATIN CALCIUM 20 MG TABLET PO SCH (21:00)
--- NOTE | 2020-03-05 22:18 | NUR ---
Alicia Soares RN from hospice here earlier to evaluate patient for hospice. Orders written. poultry farm supervisor Rhea informed. Orders sent to admitting to change patient to hospice status.
--- NOTE | 2020-03-05 23:30 | NUR ---
Report given by MARGARET Lopes for transfer from 215 to room 306.
[2020-03-05] MEDS ORDERED: GLYCOPYRROLATE 0.2 MG/ML 5 ML VIAL IVP PRN (23:45)
[2020-03-05] MEDS ORDERED: MORPHINE SULFATE 2 MG/ML 1ML SYG IVP PRN ×2 (23:45)
[2020-03-05] MEDS ORDERED: ACETAMINOPHEN 325 MG SUPPOSITORY RC PRN (23:45)
[2020-03-05] MEDS ORDERED: LORAZEPAM 2 MG/ML 1 ML VIAL IVP PRN (23:45)
[2020-03-05] MEDS ORDERED: ALBUTEROL SULFATE 0.083% 2.5 MG/3 ML INH IH PRN (23:45)
[2020-03-05] MEDS ORDERED: BISACODYL 10 MG SUPP.RECT RC PRN (23:45)
[2020-03-05] MEDS ORDERED: ONDANSETRON HCL 4 MG/2 ML VIAL IVP PRN (23:45)
--- NOTE | 2020-03-05 23:55 | NUR ---
Patient transferred to room 306. Status unchanged. Report given to Yvette ROBLES. Call placed to daughter Roma to inform her of room number. Spoke with Glen at [facility] to inform him to room number. Spoke with hospitalist aoc operations intelligence officer AJ. Informed him of transfer to 306 with [facility].
--- NOTE | 2020-03-06 | NUR ---
Pt admitted to floor with his personal belongings via bed to bed transfer. Pt not in respiratory distress, fully awake , non-verbal and bedbound. Per report , pt is DNR, DNI , no labs,xrays, glucose check, O2Sat and TELE. V/S to check q shift and may DC if family requested. Has O2 at 2LPM via NC. PIV to left FA#20 gauge - patent and intact. Pt is already under [facility]. Continue giving comfort measures as POC. Placed in bed comfortably. Kept monitored and observed for any change in status. Cared for and needs provided. Distress / discomfort not noted.
[2020-03-06] MEDS ORDERED: MORPHINE SULFATE 2 MG/ML 1ML SYG IVP PRN (00:15)
[2020-03-06 04:00] VITALS: BP 122/73
[2020-03-06 05:25] LABS: BASOPHILS % (AUTO) 0.8 % (0.0-5.0); EOSINOPHILS % (AUTO) 3.4 % (0.0-8.0); HEMATOCRIT 32.7 % (42-54); LYMPHOCYTES % (AUTO) 16.5 % (21.0-51.0); MEAN CORPUSCULAR HEMOGLOBIN 26.9 pg (27.0-33.0); MEAN CORPUSCULAR HGB CONC 30.9 g/dL (32.0-36.0); MEAN CORPUSCULAR VOLUME 87.2 fL (79-99); MONOCYTES % (AUTO) 5.9 % (3.0-13.0); NEUTROPHILS % (AUTO) 71.9 % (40.0-77.0); PLATELET COUNT (AUTO) 347 K/uL (130-400); RED BLOOD CELL COUNT(AUTO) 3.75 MIL/uL (4.50-6.20); RED CELL DISTRIBUTION WIDTH 17.7 % (11.0-15.5); WHITE BLOOD COUNT (AUTO) 10.3 K/uL (4.8-10.8)
[2020-03-06 05:49] LABS: CREATININE 0.7 mg/dL (0.5-1.5)
[2020-03-06] MEDS ORDERED: ALBUTEROL SULFATE 0.083% 2.5 MG/3 ML INH IH SCH (06:00)
[2020-03-06 08:00] VITALS: BP 146/74
--- NOTE | 2020-03-06 08:55 | NUR ---
IN HOSPICE Sw spoke to Noemí at [facility]. Pt was admitted last night to their services. Informed Noemí that admission was not completed and pt not admitted to [facility]. Noemí on her way to make corrections on admitting paperwork.
--- NOTE | 2020-03-06 10:49 | NUR ---
[facility] Admission Noemí and creative guru Hilda Gomez met with pt and family. All admission paperwork completed and pt will be admitted yesterday 03/05/2020 at 8:35pm. [facility] financial corrections counselor made aware and will change account status to reflect this. DCP is for pt to dc home tomorrow if pt remains stable. OOHDNR left on chart for Dr Mann to sign. [facility] to make dc arrangements for DME and transport. CM made aware of dcp
[2020-03-06 12:00] VITALS: BP 132/77
== END 2020-03-05 23:46 ==
LOC: 2CH 22:12 → INTOOBSV 22:12 → 3BH 03-05 23:45
PROVIDERS: ADMIT Internal Medicine; ATTEND Internal Medicine
PROC: 5A09357 Assistance with Respiratory Ventilation, Less than 24 Consecutive Hours, Continuous Positive Airway Pressure (ICD-10-PCS; principal; 2020-03-05)
DX: J96.20 Acute and chronic respiratory failure, unspecified whether with hypoxia or hypercapnia (principal); J18.9 Pneumonia, unspecified organism; R53.2 Functional quadriplegia; E43 Unspecified severe protein-calorie malnutrition; I10 Essential (primary) hypertension; I69.391 Dysphagia following cerebral infarction; R13.12 Dysphagia, oropharyngeal phase; I69.320 Aphasia following cerebral infarction; Z88.5 Allergy status to narcotic agent; Z88.0 Allergy status to penicillin; Z91.041 Radiographic dye allergy status; Y95 Nosocomial condition; Z93.1 Gastrostomy status
CPT/HCPCS: 36415 ×2; 71045; 80048; 80053; 82948 ×4; 85025 ×2; 85610; 85730; 94640 ×3; 94660; 94664; 96374; 96376; G0378 ×4; J3490 ×2

== ENCOUNTER 2020-03-05 23:47 | Inpatient (IN) | payer OTHER ==
[2020-03-06] MEDS ORDERED: ALBUTEROL SULFATE 0.083% 2.5 MG/3 ML INH IH ONE (06:00)
[2020-03-06] MEDS ORDERED: BISACODYL 10 MG SUPP.RECT RC PRN (12:45)
[2020-03-06] MEDS ORDERED: LORAZEPAM 2 MG/ML 1 ML VIAL IVP PRN (12:45)
[2020-03-06] MEDS ORDERED: ACETAMINOPHEN ELIXIR 650 MG/20.3 ML UDCUP PEG PRN (12:45)
[2020-03-06] MEDS ORDERED: ONDANSETRON HCL 4 MG/2 ML VIAL IVP PRN (12:45)
[2020-03-06] MEDS ORDERED: MORPHINE SULFATE 2 MG/ML 1ML SYG IVP PRN ×2 (12:45)
--- NOTE | 2020-03-06 13:00 | NUR ---
PATIENT ADMITTED TO [facility] AND WILL BE DISCHARGING HOME UNDER THEIR SERVICES. SPOKE BRIEFLY TO SPOUSE AT BEDSIDE Addendum: 03/07/20 at 0815 by DEJA SHER RN CM Amended: Links added.
[2020-03-06 16:00] VITALS: BP 127/78
[2020-03-06] MEDS: GLYCOPYRROLATE 1 MG/5 ML SYRINGE IV PRN ×2 (16:17→21:55)
--- NOTE | 2020-03-06 16:17 | NUR ---
wet gurgling cough; okay to hold feeding for [address] Bishop aware. Glycopyrrolate given iv.
[2020-03-06] MEDS: MORPHINE SULFATE 2 MG/ML 1ML SYG IVP PRN (16:19)
[2020-03-06 20:00] VITALS: BP 127/84
[2020-03-07] MEDS: GLYCOPYRROLATE 1 MG/5 ML SYRINGE IV PRN ×2 (02:28→20:03)
[2020-03-07] MEDS: MORPHINE SULFATE 2 MG/ML 1ML SYG IVP PRN (03:24)
[2020-03-07 11:37] VITALS: BP 134/50
--- NOTE | 2020-03-07 13:36 | NUR ---
GIP f/u Nurse Hilda rounded on pt this am. Pt will not be discharged today, pt declining and they want to keep pt here another day. [facility] to f/u tomorrow
[2020-03-08 00:05] VITALS: BP 157/58
[2020-03-08] MEDS: GLYCOPYRROLATE 1 MG/5 ML SYRINGE IV PRN (04:39)
--- NOTE | 2020-03-08 04:57 | NUR ---
ORAL CARE DONE AT BEDSIDE. PT ERENDIRA WELL. ASPIRATION PRECAUTIONS TAKEN. VASELINE OINT APPLIED TO LIPS
[2020-03-08 12:00] VITALS: BP 125/40
[2020-03-08 20:00] VITALS: BP 134/71
[2020-03-09] MEDS: GLYCOPYRROLATE 1 MG/5 ML SYRINGE IV PRN (01:30)
[2020-03-09 08:00] VITALS: BP 132/74
--- NOTE | 2020-03-09 13:44 | NUR ---
PATIENT WITH RESP EVEN AND UNLABORED .. NO SIGNS OF DISTRESS
--- NOTE | 2020-03-09 23:00 | NUR ---
ORAL CARE PROVIDED ORAL CARE. PT ERENDIRA WELL. TENACIOUS SECRETIONS NOTED. VASALINE OINTMENT APPLIED TO LIPS
[2020-03-10] VITALS: BP 130/77
[2020-03-10 07:50] VITALS: BP 128/77
--- NOTE | 2020-03-10 10:00 | NUR ---
WAS ADVISED BY ABHAY HERNANDEZ THAT PATIENT WILL BE GOING HOME WITH HOSPICE SERVCES AND THAT HOSPICE WILL BE ARRANGING ALL TRANSPORT ADVISED PRIMARY MARGARET DOWD Addendum: 03/10/20 at 1328 by DEJA SHER RN CM Amended: Links added.
--- NOTE | 2020-03-10 11:00 | NUR ---
Called and provided report to Cayetano Joy RN of [facility]. Equipment has been delivered to home, pending scheduled EMS transfer at 16:00. Daughter Roma Gómez notified. Verbalized understanding.
[2020-03-10] MEDS: GLYCOPYRROLATE 1 MG/5 ML SYRINGE IV PRN (11:41)
== END 2020-03-10 15:45 | DRG 871 ==
LOC: 3BH 23:47
PROVIDERS: ADMIT Internal Medicine Hematology & Oncology; ATTEND Internal Medicine Hematology & Oncology
DX: A41.9 Sepsis, unspecified organism (principal); J18.9 Pneumonia, unspecified organism; R65.21 Severe sepsis with septic shock; E87.0 Hyperosmolality and hypernatremia; E87.1 Hypo-osmolality and hyponatremia; I10 Essential (primary) hypertension; H54.8 Legal blindness, as defined in USA; E86.0 Dehydration; E78.5 Hyperlipidemia, unspecified; E11.9 Type 2 diabetes mellitus without complications; Z51.5 Encounter for palliative care; Z66 Do not resuscitate; Z86.73 Personal history of transient ischemic attack (TIA), and cerebral infarction without residual deficits; Z90.49 Acquired absence of other specified parts of digestive tract; Z88.0 Allergy status to penicillin; Z88.5 Allergy status to narcotic agent; Z88.8 Allergy status to other drugs, medicaments and biological substances; Y93.89 Activity, other specified; Y92.89 Other specified places as the place of occurrence of the external cause; Y99.8 Other external cause status
CPT/HCPCS: 94640; G0378; J3490